=== PATIENT | female | born 1970 | race African-American/Black ===

== ENCOUNTER 2017-08-05 19:36 | Emergency (ER) | payer OTHER ==
[~2017-08-05] VITALS: Ht 154.9 cm; Wt 61.0 kg
[2017-08-05 22:42] LABS: CLARITY URINE TURBID (CLEAR); COLOR URINE RED (YELLOW); GLUCOSE URINE NEGATIVE (NEGATIVE); KETONES URINE NEGATIVE (NEGATIVE); LEUKOCYTE ESTERASE URINE 2+ (NEGATIVE); NITRITE URINE NEGATIVE (NEGATIVE); OCCULT BLOOD URINE 3+ (NEGATIVE); PROTEIN URINE 3+ (NEGATIVE); SPECIFIC GRAVITY URINE 1.026 (1.005-1.030)
[2017-08-05 23:03] VITALS: BP 110/69
[2017-08-05 23:56] LABS: HCG SCREEN NEGATIVE
[2017-08-06] MEDS ORDERED: NITROFURANTOIN 100MG M/M CAPSULE PO ONE (00:30)
== END 2017-08-06 00:51 | disposition home or self-care (01) ==
LOC: ER 19:36
DX: N39.0 Urinary tract infection, site not specified (principal)
CPT/HCPCS: 81001; 84703; 99284

== ENCOUNTER 2018-02-27 21:20 | Emergency (ER) | payer OTHER ==
[~2018-02-27] VITALS: Ht 154.9 cm; Wt 62.0 kg
[2018-02-27] MEDS ORDERED: IBUPROFEN 600MG TABLET PO ONE (23:15)
[2018-02-28 00:10] VITALS: BP 135/75
== END 2018-02-28 01:40 | disposition home or self-care (01) ==
LOC: ER 21:20
DX: S90.112A Contusion of left great toe without damage to nail, initial encounter (principal); X58.XXXA Exposure to other specified factors, initial encounter; Y93.89 Activity, other specified; Y92.89 Other specified places as the place of occurrence of the external cause
CPT/HCPCS: 73630; 99284

== ENCOUNTER 2018-06-14 17:56 | Emergency (ER) | payer OTHER ==
[~2018-06-14] VITALS: Ht 154.9 cm; Wt 60.0 kg
[2018-06-14 17:59] VITALS: BP 117/76
== END 2018-06-14 18:44 | disposition home or self-care (01) ==
LOC: ER 17:56
DX: S00.86XA Insect bite (nonvenomous) of other part of head, initial encounter (principal); S50.861A Insect bite (nonvenomous) of right forearm, initial encounter; S50.362A Insect bite (nonvenomous) of left elbow, initial encounter; R03.0 Elevated blood-pressure reading, without diagnosis of hypertension; W57.XXXA Bitten or stung by nonvenomous insect and other nonvenomous arthropods, initial encounter; Y93.89 Activity, other specified; Y92.89 Other specified places as the place of occurrence of the external cause
CPT/HCPCS: 99283

== ENCOUNTER 2020-08-15 17:36 | Emergency (ER) | payer OTHER ==
[~2020-08-15] VITALS: Ht 154.9 cm; Wt 61.0 kg
[2020-08-15 18:29] VITALS: BP 135/87
== END 2020-08-15 18:30 | disposition home or self-care (01) ==
LOC: ER 17:36
DX: B02.9 Zoster without complications (principal); G35 Multiple sclerosis; Z98.51 Tubal ligation status
CPT/HCPCS: 99283

== ENCOUNTER 2021-12-05 17:07 | Emergency (ER) | payer OTHER ==
[~2021-12-05] VITALS: Ht 157.5 cm; Wt 60.0 kg
[2021-12-05] MEDS ORDERED: HYDR-4001 MT (18:12)
[2021-12-05] MEDS ORDERED: CEPH500C2 MT (18:12)
[2021-12-05] MEDS ORDERED: HYDROCODONE/ACETAMINOPHEN 5/325MG TABLET PO ONE (18:15)
[2021-12-05] MEDS ORDERED: CEPHALEXIN 250MG CAPSULE PO ONE (18:15)
[2021-12-05 18:24] VITALS: BP 132/100
== END 2021-12-05 18:32 | disposition home or self-care (01) ==
LOC: ER 17:07
DX: N61.0 Mastitis without abscess (principal); N63.20 Unspecified lump in the left breast, unspecified quadrant; Z98.51 Tubal ligation status; Z98.890 Other specified postprocedural states
CPT/HCPCS: 99283

== ENCOUNTER 2022-09-19 13:34 | Emergency (ER) | payer OTHER ==
[~2022-09-19] VITALS: Ht 154.9 cm; Wt 59.0 kg
[~2022-09-19 13:34] MED LIST: CEPH500C2 MT; HYDR-4001 MT
[2022-09-19] MEDS ORDERED: TETRACAINE 0.5% OPHTH DROPS 4ML RIGHTEYE ONE (21:45)
[2022-09-19] MEDS ORDERED: FLUORESCEIN SODIUM 1MG/STRIP RIGHTEYE ONE (21:45)
[2022-09-19] MEDS ORDERED: AMOXICILLIN/POTASSIUM CLAVULANATE 875/125MG TAB PO ONE (23:30)
[2022-09-20 00:45] VITALS: BP 118/77
[2022-09-20] MEDS ORDERED: AMOX1TAB16 MT (01:15)
[2022-09-20] MEDS ORDERED: IOHEXOL-300 100 ML BOTTLE ONE (01:16)
== END 2022-09-20 01:45 | disposition home or self-care (01) ==
LOC: ER 13:42
DX: K04.7 Periapical abscess without sinus (principal); H53.8 Other visual disturbances; G35 Multiple sclerosis; Z98.51 Tubal ligation status; Z98.890 Other specified postprocedural states
CPT/HCPCS: 70450; 70487; 99284; Q9967

== ENCOUNTER 2022-09-27 01:58 | Emergency (ER) | payer OTHER ==
[~2022-09-27] VITALS: Ht 154.9 cm; Wt 60.0 kg
[~2022-09-27 01:58] MED LIST changes: -BENZ100C86 MT; -ONDA4TAB11 PO
[2022-09-27] MEDS ORDERED: ONDANSETRON 4MG ODT PO ONE (11:00)
[2022-09-27] MEDS ORDERED: KETOROLAC 30MG/ML VIAL IM ONE (11:00)
[2022-09-27] MEDS ORDERED: ONDA4TAB11 PO (11:50)
[2022-09-27] MEDS ORDERED: BENZ100C86 MT (11:50)
[2022-09-27 12:07] VITALS: BP 137/75
== END 2022-09-27 12:09 | disposition home or self-care (01) ==
LOC: ER 02:07
DX: J06.9 Acute upper respiratory infection, unspecified (principal); R05.9 Cough, unspecified; G35 Multiple sclerosis; Z98.51 Tubal ligation status; Z98.890 Other specified postprocedural states
CPT/HCPCS: 87804; 93005; 96372; 99284; J1885; Q0162

== ENCOUNTER → 2022-09-27 | Emergency (ER) | payer OTHER ==
[~2022-09-27] MED LIST changes: +AMOX1TAB16 MT; +BENZ100C86 MT; +ONDA4TAB11 PO
== END | disposition left against medical advice (07) ==
LOC: ER 09:02
DX: Z53.21 Procedure and treatment not carried out due to patient leaving prior to being seen by health care provider (principal)

== ENCOUNTER 2022-10-05 16:22 | Emergency (ER) | payer OTHER ==
[~2022-10-05] VITALS: Ht 165.1 cm; Wt 66.0 kg
[~2022-10-05 16:22] MED LIST changes: +BENZ100C86 MT; +ONDA4TAB11 PO
[2022-10-05 17:47] VITALS: BP 125/64
== END 2022-10-05 17:48 | disposition home or self-care (01) ==
LOC: ER 16:22
DX: Z13.9 Encounter for screening, unspecified (principal); Z98.890 Other specified postprocedural states; Z98.51 Tubal ligation status
CPT/HCPCS: 99281

== ENCOUNTER 2023-03-01 11:36 | Emergency (ER) | payer OTHER ==
[~2023-03-01] VITALS: Ht 154.9 cm; Wt 60.0 kg
[2023-03-01] MEDS ORDERED: IBUPROFEN 600MG TABLET PO ONE (12:15)
[2023-03-01 12:38] VITALS: BP 126/77
[2023-03-01 12:50] LABS: CHLORIDE 108 mEq/L (98-107)
[2023-03-01 12:53] LABS: HEMATOCRIT 31.3 % (36.0-48.0); HEMOGLOBIN 9.8 g/dL (12.0-16.0); MEAN CORPUSCULAR HEMOGLOBIN 21.2 pg (28.0-32.0); MEAN CORPUSCULAR VOLUME 67.9 fL (81.0-99.0); PLATELET 310 x1000/uL (130-400); RED CELL DISTRIBUTION WIDTH 18.5 % (11.6-14.6)
[2023-03-01 12:56] LABS: PARTIAL THROMBOPLASTIN TIME 24.2 sec (23.4-31.0); PROTHROMBIN TIME 11.1 sec (9.6-11.0)
[2023-03-01] MEDS ORDERED: IBUP-2029 MT (14:12)
== END 2023-03-01 14:41 | disposition home or self-care (01) ==
LOC: ER 11:43
DX: M25.571 Pain in right ankle and joints of right foot (principal)
CPT/HCPCS: 36415; 73610; 80053; 85027; 85610; 85730; 93971; 99284; Z7610

== ENCOUNTER 2023-09-03 18:35 | Emergency (ER) | payer OTHER ==
[~2023-09-03] VITALS: Ht 165.1 cm; Wt 91.0 kg
[~2023-09-03 18:35] MED LIST changes: +IBUP-2029 MT
[2023-09-03 18:46] VITALS: BP 125/88; PULSE 70; RESP 18; TEMP 97.9; O2SAT 100
[2023-09-03] MEDS ORDERED: KETOROLAC 30MG/ML VIAL IM ONE (19:30)
[2023-09-03] MEDS ORDERED: IBUP-2030 MT (20:38)
== END 2023-09-03 21:08 | disposition home or self-care (01) ==
LOC: ER 18:35
DX: M79.601 Pain in right arm (principal); Z98.51 Tubal ligation status; Z98.890 Other specified postprocedural states; Z79.899 Other long term (current) drug therapy
CPT/HCPCS: 73030; 73080; 73110; 99284; A4565

== ENCOUNTER 2024-05-09 12:01 | Emergency (ER) | payer OTHER ==
[~2024-05-09] VITALS: Ht 160 cm; Wt 70.0 kg
[~2024-05-09 12:01] MED LIST changes: +IBUP-2030 MT
[2024-05-09 12:19] VITALS: BP 109/78; PULSE 77; RESP 18; TEMP 98.2; O2SAT 100
[2024-05-09] MEDS ORDERED: ERYT1OIN6 LEFTEYE (13:39)
== END 2024-05-09 14:07 | disposition home or self-care (01) ==
LOC: ER 12:01
DX: H00.014 Hordeolum externum left upper eyelid (principal); I82.409 Acute embolism and thrombosis of unspecified deep veins of unspecified lower extremity; Z98.51 Tubal ligation status; Z98.890 Other specified postprocedural states
CPT/HCPCS: 99283

== ENCOUNTER 2024-10-26 12:45 | Emergency (ER) | payer MEDICAID ==
[~2024-10-26] VITALS: Ht 162.6 cm; Wt 58.9 kg
[~2024-10-26 12:45] MED LIST changes: +ERYT1OIN6 LEFTEYE; +ONDA-239 PO; -ONDA4TAB11 PO
[2024-10-26 12:53] VITALS: O2SAT 100
[2024-10-26] MEDS ORDERED: TUSSL MT (17:31)
[2024-10-26] MEDS ORDERED: CETI1TAB MT (17:31)
[2024-10-26] MEDS: DEXAMETHASONE 10 MG/ML VIAL PO ONE (18:32)
[2024-10-26 18:33] VITALS: BP 125/61; PULSE 70; RESP 16; TEMP 36.78072; O2SAT 100
== END 2024-10-26 19:16 | disposition home or self-care (01) ==
LOC: ER 12:53
DX: J04.0 Acute laryngitis (principal); F10.90 Alcohol use, unspecified, uncomplicated; Z86.718 Personal history of other venous thrombosis and embolism; Z98.51 Tubal ligation status; Z98.890 Other specified postprocedural states; Z85.9 Personal history of malignant neoplasm, unspecified; Y90.9 Presence of alcohol in blood, level not specified
CPT/HCPCS: 99283; 71045; J1100

== ENCOUNTER 2025-01-31 19:45 | Emergency (ER) | payer MEDICAID ==
[~2025-01-31] VITALS: Ht 154.9 cm; Wt 65.2 kg
[~2025-01-31 19:45] MED LIST changes: +CETI1TAB MT; +TUSSL MT
[2025-01-31 19:57] VITALS: O2SAT 100
[2025-01-31 19:58] VITALS: BP 153/75; PULSE 83; RESP 18; TEMP 36.8; O2SAT 100
[2025-01-31] MEDS ORDERED: PENICILLIN V POTASSIUM 250MG TABLET PO SCH (23:15)
[2025-01-31] MEDS: IBUPROFEN 600MG TABLET PO ONE (23:35)
[2025-01-31] MEDS: AMOXICILLIN/POTASSIUM CLAVULANATE 875/125MG TAB PO ONE (23:42)
[2025-01-31] MEDS ORDERED: IBUP-2029 MT (23:48)
[2025-01-31] MEDS ORDERED: PENI500T MT (23:48)
[2025-02-01] MEDS ORDERED: ONDA-239 PO (11:48)
== END 2025-02-01 00:27 | disposition home or self-care (01) ==
LOC: ER 19:45
DX: S02.5XXA Fracture of tooth (traumatic), initial encounter for closed fracture (principal); K04.7 Periapical abscess without sinus; K02.9 Dental caries, unspecified; Z79.899 Other long term (current) drug therapy; Z98.51 Tubal ligation status; Z98.890 Other specified postprocedural states; Z86.718 Personal history of other venous thrombosis and embolism; X58.XXXA Exposure to other specified factors, initial encounter; Y93.89 Activity, other specified; Y92.89 Other specified places as the place of occurrence of the external cause; Y99.8 Other external cause status
CPT/HCPCS: 99283

== ENCOUNTER 2025-02-01 06:41 | Emergency (ER) | payer MEDICAID ==
[~2025-02-01] VITALS: Ht 154.9 cm; Wt 63.9 kg
[~2025-02-01 06:41] MED LIST changes: +PENI500T MT
[2025-02-01 06:51] VITALS: O2SAT 100
[2025-02-01 06:52] VITALS: BP 125/86; PULSE 91; RESP 18; TEMP 36.7; O2SAT 100
[2025-02-01] MEDS: ONDANSETRON 4MG ODT PO ONE (07:11)
[2025-02-01 08:46] LABS: CHLORIDE 103 mEq/L (98-107); HEMATOCRIT. 33.6 % (36.0-48.0); HEMOGLOBIN. 10.1 g/dL (12.0-16.0); MEAN CORPUSCULAR HEMOGLOBIN 19.1 pg (28.0-32.0); MEAN CORPUSCULAR VOLUME 63.8 fL (81.0-99.0); MEAN PLATELET VOLUME 8.4 fl (7.4-10.4); PLATELET 384 x1000/uL (130-400); POTASSIUM 3.8 mEq/L (3.5-5.1); RED BLOOD CELL COUNT 5.26 mill/uL (4.2-5.4); RED CELL DISTRIBUTION WIDTH 19.4 % (11.6-14.6); SODIUM 140 mEq/L (136-145); WHITE BLOOD COUNT 7.4 x1000/uL (4.5-11.0)
[2025-02-01 08:47] LABS: CALCIUM 9.8 mg/dL (8.7-10.4); CARBON DIOXIDE 28 mEq/L (21-32)
[2025-02-01 08:52] LABS: CREATININE 0.7 mg/dL (0.6-1.0); GLUCOSE 118 mg/dL (70-105); UREA NITROGEN BLOOD 14 mg/dL (9-23)
[2025-02-01 08:53] LABS: HCG SCREEN NEGATIVE
[2025-02-01 08:54] LABS: ALANINE AMINOTRANSFERASE 25 IU/L (10-49); ALBUMIN 4.5 g/dL (3.2-4.8); ASPARTATE AMINOTRANSFERASE 26 IU/L (<34)
[2025-02-01 08:55] LABS: BILIRUBIN TOTAL 0.9 mg/dL (0.1-1.0); PROTEIN TOTAL 8.1 g/dL (6.0-8.3)
[2025-02-01 08:56] LABS: DIFFERENTIAL COMMENT 1
[2025-02-01] MEDS: METOCLOPRAMIDE HCL 10MG/2ML VIAL IV ONE (09:18)
[2025-02-01] MEDS: LACTATED RINGERS 1,000 ML IV SCH (09:19)
[2025-02-01 10:46] LABS: PLATELET ESTIMATE NORMAL
[2025-02-01 10:47] LABS: ANISOCYTOSIS 3+; HYPOCHROMASIA 1+; OVALOCYTES 1+
[2025-02-01 10:48] LABS: MICROCYTOSIS 3+
[2025-02-01] MEDS ORDERED: ONDA-239 PO (11:48)
== END 2025-02-01 12:10 | disposition home or self-care (01) ==
LOC: ER 06:48
DX: R11.2 Nausea with vomiting, unspecified (principal); Z98.51 Tubal ligation status; Z86.718 Personal history of other venous thrombosis and embolism; Z79.899 Other long term (current) drug therapy; Z98.890 Other specified postprocedural states
CPT/HCPCS: 80053; 84703; 83690; 85025; 36415; 96361; 96374; 99283; Q0162; J2765; Z7610 ×5; J7120

== ENCOUNTER 2025-09-20 14:34 | Emergency (ER) | payer OTHER ==
[~2025-09-20] VITALS: Ht 160 cm; Wt 62.0 kg
[~2025-09-20 14:34] MED LIST changes: +IBUP-1455 MT; -IBUP-2029 MT
[2025-09-20 14:45] VITALS: TEMP 36.8; O2SAT 100
[2025-09-20 17:29] VITALS: BP 125/77; PULSE 89; RESP 18; O2SAT 100
== END 2025-09-20 17:30 | disposition home or self-care (01) ==
LOC: ER 14:34
DX: S60.444A External constriction of right ring finger, initial encounter (principal); Z98.51 Tubal ligation status; Z86.718 Personal history of other venous thrombosis and embolism; M79.2 Neuralgia and neuritis, unspecified; Z79.899 Other long term (current) drug therapy; Z98.890 Other specified postprocedural states; W49.04XA Ring or other jewelry causing external constriction, initial encounter; Y93.89 Activity, other specified; Y99.8 Other external cause status; Y92.89 Other specified places as the place of occurrence of the external cause
CPT/HCPCS: 64450; 99284